=== PATIENT | male | born 2000 | race Two or more races ===

== ENCOUNTER 2022-09-01 09:10 | Emergency (ER) | payer OTHER ==
[~2022-09-01] VITALS: Ht 177.8 cm; Wt 64.4 kg
[2022-09-01 09:59] VITALS: BP 128/76
[2022-09-01] MEDS ORDERED: IBUP600T27 PO (11:14)
[2022-09-01] MEDS ORDERED: CEPH-510 PO (11:14)
[2022-09-01] MEDS ORDERED: PROM1SOL4 PO (11:19)
== END 2022-09-01 11:17 | disposition home or self-care (01) ==
LOC: ER 09:10
DX: S61.411A Laceration without foreign body of right hand, initial encounter (principal); S60.031A Contusion of right middle finger without damage to nail, initial encounter; W18.39XA Other fall on same level, initial encounter; Y93.89 Activity, other specified; Y92.89 Other specified places as the place of occurrence of the external cause; Y99.8 Other external cause status
CPT/HCPCS: 73130